=== PATIENT | female | born 1935 | race Caucasian/White ===

== ENCOUNTER 2020-03-12 08:00 | Emergency (ER) | payer MEDICARE, OTHER ==
[2020-03-12 08:36] VITALS: BP 150/91; PULSE 88
--- NOTE | 2020-03-12 09:54 | EDM.PDOC ---
ED HPI GENERAL MEDICAL PROBLEM - General Chief Complaint: General Stated Complaint: WANTING COVID 19 TESTING Time Seen by Provider: 03/12/20 08:15 Source of Information: Reports: Patient, EMS History Limitations: Reports: No Limitations - History of Present Illness INITIAL COMMENTS - FREE TEXT/NARRATIVE: 84-year-old female is in assisted living called EMS this morning to be brought in to the emergency room to be tested for Covid. Denies any current symptoms such as fever, chills, cough, weakness, abdominal pain. She called the evening before requesting Covid testing. She was told that she is not having current symptoms of the above that there is no indication for testing at this time. We have discussed with her appropriate precautions and recommend staying inside. She does have some forgetfulness and early onset of dementia. She stated that she thought she was calling 911 to go seen in the clinic today. Again she has no current symptoms or illnesses presenting upon her arrival. Onset: Today Location: Reports: Generalized Associated Symptoms: Reports: No Other Symptoms - Related Data Allergies Allergy/AdvReac Type Severity Reaction Status Date / Time ciprofloxacin Allergy Cannot Verified 03/12/20 08:30 Remember Penicillins Allergy Cardiac Verified 03/12/20 08:30 Arrest Home Meds: Home Meds Magnesium 1 tab PO DAILY 08/26/16 [History] Meloxicam 7.5 mg PO BID 08/26/16 [History] Potassium Gluconate [Potassium] 99 mg PO DAILY 08/26/16 [History] Past Medical History Cardiovascular History: Reports: Arrhythmia, [place] Gastrointestinal History: Reports: GERD Musculoskeletal History: Reports: Arthritis - Past Surgical History Female Surgical History: Reports: Lithotripsy/ESWL, Tubal Ligation Social & Family History - Tobacco Use Smoking Status *Q: Never Smoker - Caffeine Use Caffeine Use: Reports: None - Recreational Drug Use Recreational Drug Use: No ED ROS GENERAL - Review of Systems Review Of Systems: Comprehensive ROS is negative, except as noted in HPI. ED EXAM, GENERAL - Physical Exam Exam: See Below Exam Limited By: No Limitations General Appearance: Alert, No Apparent Distress, Thin Eye Exam: Bilateral Eye: EOMI Ears: Hearing Grossly Normal Nose: Normal Inspection Throat/Mouth: Normal Inspection, Normal Oropharynx, Normal Voice, No Airway Compromise Head: Atraumatic Neck: Normal Inspection, Supple, Non-Tender, Full Range of Motion. No: Lymphadenopathy (L), Lymphadenopathy (R) Respiratory/Chest: No Respiratory Distress, Lungs Clear, Normal Breath Sounds Cardiovascular: Normal Peripheral Pulses, Regular Rate, Rhythm GI/Abdominal: Soft Back Exam: Normal Inspection Extremities: Normal Inspection Neurological: Alert, No Motor/Sensory Deficits Psychiatric: Normal Affect, Normal Mood Skin Exam: Warm, Dry, Intact, Normal Color, No Rash Lymphatic: No Adenopathy Course - Vital Signs Last Recorded V/S: Last Vital Signs Temp 97.3 F 03/12/20 08:00 Pulse 88 03/12/20 08:00 Resp 20 03/12/20 08:00 BP 150/91 H 03/12/20 08:00 Pulse Ox 98 03/12/20 08:00 Departure - Departure Time of Disposition: 09:20 Disposition: Home, Self-Care 01 Condition: Good Clinical Impression: Physical exam, routine - Discharge Information Instructions: Steps to Help Prevent the Spread of COVID-19 if You Are Sick - [facility] Referrals: Rianna Gonzalez MD [Primary Care Provider] - Forms: ED Department Discharge Sepsis Event Note - Evaluation Sepsis Screening Result: No Definite Risk - Focused Exam Vital Signs: Vital Signs Temp Pulse Resp BP Pulse Ox 03/12/20 08:00 97.3 F 88 20 150/91 H 98 Date Exam was Performed: 03/12/20 Time Exam was Performed: 09:54 - Assessment/Plan Assessment:: Physical exam, routine Plan: 1. Stay at home 2. Wear a mask when outside. 3. Follow-up with your primary care if symptoms such as fever, cough, abdominal pain symptoms should occur. You are currently asymptomatic with any symptoms and therefore do not require to be tested for COVID today.
== END 2020-03-12 09:00 | disposition home or self-care (01) ==
LOC: KA.ED 08:00
DX: Z00.00 Encounter for general adult medical examination without abnormal findings (principal); I25.2 Old myocardial infarction; M19.90 Unspecified osteoarthritis, unspecified site; Z79.899 Other long term (current) drug therapy; Z88.1 Allergy status to other antibiotic agents; Z88.0 Allergy status to penicillin
CPT/HCPCS: 99283

== ENCOUNTER 2024-06-12 12:15 | Emergency (ER) | payer MEDICARE ==
[2024-06-12] MEDS ORDERED: Sodium Chloride 0.9% 10 ML Syringe FLUSH PRN (12:21)
[2024-06-12 12:28] LABS: BASOPHILS ABSOLUTE AUTO 0.03 10^3/uL (0.00-0.10); BASOPHILS PERCENT AUTO 0.4 % (0.0-1.0); EOSINOPHILS ABSOLUTE AUTO 0.07 10^3/uL (0.10-0.30); HEMATOCRIT 52.4 % (37.0-47.0); HEMOGLOBIN 17.5 g/dL (12.0-16.0); IMMATURE GRAN ABSOLUTE AUTO 0.02 10^3/uL (0.00-0.50); IMMATURE GRAN PERCENT AUTO 0.3 % (0.0-5.0); LYMPHOCYTES ABSOLUTE AUTO 1.91 10^3/uL (1.00-4.00); LYMPHOCYTES PERCENT AUTO 26.3 % (20.0-40.0); MEAN CORPUSCULAR HEMOGLOBIN 31.2 pg (27.0-31.0); MEAN CORPUSCULAR HGB CONC 33.4 g/dL (32.0-36.0); MEAN CORPUSCULAR VOLUME 93.4 fL (82.0-92.0); MEAN PLATELET VOLUME 11.6 fL (7.4-10.4); MONOCYTES ABSOLUTE AUTO 0.67 10^3/uL (0.10-0.80); MONOCYTES PERCENT AUTO 9.2 % (2.0-8.0); NEUTROPHILS ABSOLUTE AUTO 4.57 10^3/uL (2.50-7.00); NEUTROPHILS PERCENT AUTO 62.8 % (50.0-70.0); PLATELET COUNT,PLT 225 10^3/uL (150-400); RED BLOOD CELL COUNT 5.61 10^6/uL (3.80-5.50); RED CELL DISTRIBUTION WIDTH 14.3 % (11.5-14.5); WHITE BLOOD CELL COUNT,WBC 7.27 10^3/uL (5.00-10.00)
[2024-06-12 12:48] LABS: ALANINE AMINOTRANSFERASE,ALT 22 U/L (14-63); ALBUMIN 3.51 g/dL (3.40-5.00); ALKALINE PHOSPHATASE 83 U/L (46-116); AMYLASE 55 U/L (25-125); ASPARTATE AMNIOTRANSFERASE,AST 14 U/L (15-37); BILIRUBIN TOTAL 0.5 mg/dL (0.2-1.0); BLOOD UREA NITROGEN,BUN 15 mg/dL (7-18); CALCIUM 9.7 mg/dL (8.7-10.3); CARBON DIOXIDE,CO2 26.3 mmol/L (21.0-32.0); CHLORIDE,CL 102 mmol/L (98-107); CREATININE 1.04 mg/dL (0.51-1.17); GLUCOSE RANDOM 111 mg/dL (70-140); LIPASE 28 U/L (16-77); POTASSIUM,K 4.3 mmol/L (3.5-5.1); PROTEIN TOTAL,TP 7.4 g/dL (6.4-8.2); SODIUM,NA 139 mmol/L (136-145)
[2024-06-12 12:51] LABS: C-REACTIVE PROTEIN 0.13 mg/dL (0.00-0.50); ESTIMATED GFR 52 mL/min (>=60)
[2024-06-12] MEDS ORDERED: Naloxone 0.4 MG/ML SDV IVPUSH PRN (12:54)
[2024-06-12] MEDS: Sodium Chloride 0.9% 100 ML IV SCH (13:00)
[2024-06-12] MEDS: HYDROmorphone 1 MG/ML Syringe IVPUSH ONE ×2 (13:00→13:30)
[2024-06-12] MEDS: Iopamidol 755 Mg/ML 100 ML Bottle IV ONE (13:00)
[2024-06-12] MEDS: hydrALAZINE 20 MG/ML SDV IVPUSH ONE (13:16)
[2024-06-12 13:25] LABS: APPEARANCE,URINE CLEAR (CLEAR); BILIRUBIN,URINE NEGATIVE (NEGATIVE); COLOR,URINE YELLOW (YELLOW); GLUCOSE,URINE NEGATIVE (NEGATIVE); KETONES,URINE TRACE mg/dL (NEGATIVE); LEUKOCYTE ESTERASE,URINE NEGATIVE (NEGATIVE); NITRITE,URINE NEGATIVE (NEGATIVE); OCCULT BLOOD,URINE TRACE-INTACT (NEGATIVE); PH,URINE 7.5 (5.0-9.0); PROTEIN,URINE NEGATIVE (NEGATIVE); UROBILINOGEN,URINE 0.2 E.U./dL (0.2-1.0)
[2024-06-12] MEDS: Sodium Chloride 0.9% 1,000 ML IV ONE (13:28)
[2024-06-12 13:36] LABS: BACTERIA,URINE RARE /HPF (NONE TO FEW); EPITHELIAL CELLS,URINE RARE /LPF; RBC,URINE 0-5 /HPF (0-5); WBC,URINE 0-5 /HPF (0-5)
[2024-06-12 16:55] VITALS: BP 142/85; PULSE 85
== END 2024-06-12 14:45 ==
LOC: KA.ED 12:15
DX: N20.0 Calculus of kidney (principal); I10 Essential (primary) hypertension; R07.89 Other chest pain; R91.1 Solitary pulmonary nodule; N28.1 Cyst of kidney, acquired; I25.2 Old myocardial infarction; K21.9 Gastro-esophageal reflux disease without esophagitis; Z79.899 Other long term (current) drug therapy; Z88.1 Allergy status to other antibiotic agents; Z88.0 Allergy status to penicillin
CPT/HCPCS: 36415; 74174; 80053; 81001; 82150; 83605; 83690; 84484; 85025; 86140; 99285; J3490; J7030; Q9967; 93010; 99284